=== PATIENT | male | born 1960 | race American Indian/Alaskan Native ===

== ENCOUNTER 2019-06-06 15:27 | Emergency (ER) | payer OTHER ==
[2019-06-06 15:50] VITALS: BP 133/87
--- NOTE | 2019-06-06 15:52 | Event Note ---
ED Screening Note Date of service: 06/06/19 Time: 15:49 ED Screening Note: This is a 58 y.o. M. that presents to the ER with left eye pain x 3 days. Patient states a bug flew into his eye a few days ago and irritation every since. Reports irritation, drainage, and pain Denies visual changes This initial assessment/diagnostic orders/clinical plan/treatment(s) is/are subject to change based on patients health status, clinical progression and re- assessment by fellow clinical providers in the ED. Further treatment and workup at subsequent clinical providers discretion. Patient/guardian urged not to elope from the ED as their condition may be serious if not clinically assessed and managed. Initial orders include: Jacobs light Visual acuity
--- NOTE | 2019-06-06 17:48 | Emergency Department Report ---
[facility] Chief Complaint: Eye Problems Stated Complaint: EYE INJURY Time Seen by Provider: 06/06/19 15:49 Duration: 3 Days Side: Right Severity: mild Symptoms: Yes Eye Itching, Yes Eye Redness, Yes Eye Pain, No Mucous Drainage, No Purulent Drainage, No Blurred Vision, No Preceding URI, No H/O Allergic Rhinitis, No Contact Lens Use, No Trauma, No Fever, No Headache Other History: This 58-year-old male who presents to ED complaining of right eye redness and pain times couple of days. ED Review of Systems ROS: Stated complaint: EYE INJURY Other details as noted in HPI Comment: All other systems reviewed and negative ED Past Medical Hx - Past Medical History Previous Medical History?: No Hx Diabetes: No Additional medical history: MURMUR - Surgical History Past Surgical History?: No - Social History Smoking Status: Unknown if ever smoked Substance Use Type: None - Medications Home Medications: Home Medications Medication Instructions Recorded Confirmed Last Taken Type Apixaban [Eliquis] 5 mg PO Q12HR #60 tablet 01/31/18 Unknown Rx Apixaban [Eliquis] 10 mg PO Q12HR #11 tablet 01/31/18 Unknown Rx Ketorolac Tromethamine [Ketorolac 1 - 2 drops OP BID #5 ml 06/06/19 Unknown Rx Tromethamine 0.4% opth soln] Ofloxacin 0.3% [Ocuflox 0.3% opth] 1 - 2 drops OP TID #1 bottle 06/06/19 Unknown Rx [facility] Exam - Exam General: Vital signs noted. No distress. Alert and acting appropriately. Eye Exam: Right Injection, Both EOMI, Neither Chemosis, Neither Abnormal Pupil, Neither Eye Foreign Body, Neither Lid Foreign Body, Neither Mucous Discharge, Neither Purulent Discharge HEENT: No Nasal Congestion, No Pharyngeal Erythema Remainder of HEENT: Normal Lungs: Yes Clear Lung Sounds, Yes Good Air Exchange, No Wheezes, No Stridor, No Cough, No Nasal Flaring, No Retractions, No Use of Accessory Muscles ED Course Vital Signs 06/06/19 15:49 Temperature 98.2 F Pulse Rate 89 Respiratory 18 Rate Blood Pressure 133/87 O2 Sat by Pulse 98 Oximetry ED Medical Decision Making - Medical Decision Making 58-year-old male presents with right eye conjunctivitis ED course: marcus lamp test shows no corneal abrasion. discussed this with the patient. Discussed the patient will be going home on antibiotic eyedrops to apply 4-5 times a day I discussed the patient we'll give her enrollment management director referral if needed he'll follow-up if symptoms persist. I discussed the patient is new or worsening symptoms to return to ED immediately Patient's vital signs are stable he's in no distress. Patient is vision is intact, visual acuity test performed, within normal limits. Discussed the patient to follow up with her primary care physician in 3-5 days. Critical care attestation.: If time is entered above; I have spent that time in minutes in the direct care of this critically ill patient, excluding procedure time. ED Disposition Clinical Impression: Conjunctivitis Disposition: TO HOME OR SELFCARE Is pt being admited?: No Does the pt Need Aspirin: No Condition: Stable Instructions: Conjunctivitis (ED) Additional Instructions: folloe up with PCP in 3-5 days apply eye drops as prescribed Return to ED if any worse symptoms Prescriptions: Ketorolac Tromethamine [Ketorolac Tromethamine 0.4% opth soln] 1 - 2 drops OP BID #5 ml Ofloxacin 0.3% [Ocuflox 0.3% opth] 1 - 2 drops OP TID #1 bottle Referrals: PRADIP TURNER MD [Staff Physician] - 3-5 Days Forms: Work/School Release Form(ED) Time of Disposition: 17:48
== END 2019-06-06 17:58 | disposition home or self-care (01) ==
LOC: ED 15:27
DX: H10.9 Unspecified conjunctivitis (principal); Z79.899 Other long term (current) drug therapy
CPT/HCPCS: 99283